=== PATIENT | male | born 1990 | race Caucasian/White ===

== ENCOUNTER 2016-12-31 11:38 | Emergency (ER) | payer OTHER ==
--- NOTE | 2016-12-31 14:19 | EDDOCDS ---
Nurse's Notes [facility] Name: Raj Eagle Age: 26 yrs Sex: Male : 1990 Arrival Date: 12/31/2016 Time: 11:38 Bed TR7 Private MD: NO PRIMARY PHYSICIAN, . Diagnosis: Dental caries Presentation: 12/31 11:44 Presenting complaint: Patient states: Pt presents with c/o dental pain top right side dls onset last night. Adult Sepsis Screening: The patient does not have new or worsening altered mentation. Patient's respiratory rate is less than 22. Systolic blood pressure is greater than 100. Patient has a qSOFA score of 0- Negative Sepsis Screen. Suicide/Homicide risk assessment- the patient denies having any suicidal and/or homicidal ideations and does not present with any other emotional, behavioral or mental health complaints. 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 Transition of care: patient was not received from another setting of care. 11:44 Acuity: NATASHA Level 4 dls 11:44 Method Of Arrival: Walkin/Carried/Asstd dls Triage Assessment: 11:45 General: Appears in no apparent distress, slender, Behavior is cooperative. Pain: Pain dls currently is 7 out of 10 on a pain scale. HIV screening NA for this visit Offered previously. Historical: - Allergies: no known allergies; - Home Meds: 1. none - PMHx: Substance Abuse; - PSHx: none; - Social history: Smoking status: Patient uses tobacco products, heavy tobacco smoker. No barriers to communication noted, The patient speaks fluent Mongolian. - Family history: Not pertinent. - : The pt / caregiver states he / she is not on anticoagulants. Home medication list is obtained from the patient. - Exposure Risk Screening:: None identified. Screenin:08 Screening information is obtained from the patient. Fall risk: No risks identified. kcs Assistance ADL's: requires no assistance with activities of daily living. Abuse/DV Screen: The patient / caregiver reports he/she is: not in a situation that causes fear, pain or injury. Nutritional screening: No deficits noted. Advance Directives: Currently, there is no health care proxy. home support is adequate. Assessment: 14:07 General: Appears comfortable, well developed, well nourished, well groomed, Behavior is kcs cooperative, pleasant, loudly listening to music on his phone. Pain: Complains of pain in mouth. Awake, alert, oriented. Skin warm and dry. Moves all extremities. Respirations unlabored. No apparent distress. The patient / caregiver is instructed regarding the plan of care and ED course. Physical assessment to be completed by RACHEL/SUNIL. Vital Signs: 11:39 BP 120 / 69; Pulse 86; Resp 18; Temp 97.8(O); Pulse Ox 99% on R/A; Weight 68.04 kg (R); ct3 Height 5 ft. 11 in. (180.34 cm) (R); Pain 7/10; 11:39 Body Mass Index 20.92 (68.04 kg, 180.34 cm) ct3 Vitals: 11:39 Log In Time: December 31, 2016 at 11:37. ct3 ED Course: 11:39 Patient visited by Carina Villarreal PCA. ct3 11:39 NO PRIMARY PHYSICIAN, . is Private Physician. ct3 11:39 Patient moved to Waiting ct3 11:40 Patient moved to Pre RCE ct3 11:45 Triage Initiated dls 13:28 Patient moved to Triage 2 ct3 13:56 Herrera Jeronimo PA-C is PHCP. ar2 13:56 Suzie Cosby MD is Attending Physician. ar2 13:56 Patient visited by Herrera Jeronimo PA-C. ar2 14:06 Patient moved to TR7 ct3 14:07 Patient has correct armband on for positive identification. kcs 14:08 [facility] Payment Agreement was scanned into [employer] and attached to record. mm15 14:08 No IV's were initiated during this patient's visit. No procedures done that require kcs assistance. Order Results: There are currently no results for this order. Outcome: 14:03 Discharge ordered by Provider. ar2 14:07 The following High Risk Discharge criteria are identified: None. Discharged to home kcs ambulatory, with parent. Condition: stable. Discharge instructions given to patient, Instructed on discharge instructions, follow up and referral plans. medication usage, Demonstrated understanding of instructions, medications, Pt was receptive of discharge instructions/ teaching. No special radiology studies were completed. 14:08 Discharge Assessment: Patient awake, alert and oriented x 3. No cognitive and/or kcs functional deficits noted. Patient verbalized understanding of disposition instructions. Patient awake and alert. patient administered narcotics - no. Property sent home with patient. 14:18 Patient left the ED. kcs Signatures: Cheri Dickinson RN RN kcs Scott, Debra, RN RN dls Robertshaw, Aaron, LUC PAAaron ar2 Carina Villarreal, COTTON BROKER COTTON BROKER ct3 Ivan Gutierrez mm15 MTDD
--- NOTE | 2016-12-31 14:19 | EDDOCDS ---
Physician Documentation [facility] Name: Raj Eagle Age: 26 yrs Sex: Male : 1990 Arrival Date: 12/31/2016 Time: 11:38 Bed TR7 Private MD: NO PRIMARY PHYSICIAN, . Disposition: 12/31/16 14:03 Discharged to Home/Self Care. Impression: Dental caries. - Condition is Stable. - Discharge Instructions: Dental Pain. - Prescriptions for Amoxicillin 875 mg Oral Tablet - take 1 tablet by ORAL route every 12 hours for 10 days; 20 tablet. Ibuprofen 800 mg Oral Tablet - take 1 tablet by ORAL route every 8 hours As needed take with food; 30 tablet. - Medication Reconciliation, Local Pharmacy Hours form. - Follow up: Private Physician; When: Call to arrange an appointment; Reason: Recheck today's complaints, Continuance of care. Follow up: Emergency Department; When: As needed; Reason: Fever > 102F, Trouble breathing, Worsening of conditions. - Problem is new. - Symptoms are unchanged. Historical: - Allergies: no known allergies; - Home Meds: 1. none - PMHx: Substance Abuse; - PSHx: none; - Social history: Smoking status: Patient uses tobacco products, heavy tobacco smoker. No barriers to communication noted, The patient speaks fluent Danish. - Family history: Not pertinent. - : The pt / caregiver states he / she is not on anticoagulants. Home medication list is obtained from the patient. - Exposure Risk Screening:: None identified. Vital Signs: 12/31 11:39 BP 120 / 69; Pulse 86; Resp 18; Temp 97.8(O); Pulse Ox 99% on R/A; Weight 68.04 kg / ct3 150 lbs (R); Height 5 ft. 11 in. (180.34 cm) (R); Pain 7/10; 11:39 Body Mass Index 20.92 (68.04 kg, 180.34 cm) ct3 MDM: 14:08 [facility] Payment Agreement was scanned into [employer] and attached to record. mm15 14:09 Financial registration complete. mm15 Signatures: Cheri Dickinson RN RN Cindy Jaquez RN RN dls Robertshaw, Aaron, PA-C PAIvan Moeller mm15 The chart was reviewed and I authenticate all verbal orders and agree with the evaluation and treatment provided.Attachments: 14:08 [facility] Payment Agreement mm15 MTDD
--- NOTE | 2017-01-02 15:19 | EDDOCDS ---
Physician Documentation [facility] Name: Raj Eagle Age: 26 yrs Sex: Male : 1990 Arrival Date: 12/31/2016 Time: 11:38 Bed TR7 Private MD: NO PRIMARY PHYSICIAN, . Disposition: 12/31/16 14:03 Discharged to Home/Self Care. Impression: Dental caries. - Condition is Stable. - Discharge Instructions: Dental Pain. - Prescriptions for Amoxicillin 875 mg Oral Tablet - take 1 tablet by ORAL route every 12 hours for 10 days; 20 tablet. Ibuprofen 800 mg Oral Tablet - take 1 tablet by ORAL route every 8 hours As needed take with food; 30 tablet. - Medication Reconciliation, Local Pharmacy Hours form. - Follow up: Private Physician; When: Call to arrange an appointment; Reason: Recheck today's complaints, Continuance of care. Follow up: Emergency Department; When: As needed; Reason: Fever > 102F, Trouble breathing, Worsening of conditions. - Problem is new. - Symptoms are unchanged. Historical: - Allergies: no known allergies; - Home Meds: 1. none - PMHx: Substance Abuse; - PSHx: none; - Social history: Smoking status: Patient uses tobacco products, heavy tobacco smoker. No barriers to communication noted, The patient speaks fluent Italian. - Family history: Not pertinent. - : The pt / caregiver states he / she is not on anticoagulants. Home medication list is obtained from the patient. - Exposure Risk Screening:: None identified. Vital Signs: 12/31 11:39 BP 120 / 69; Pulse 86; Resp 18; Temp 97.8(O); Pulse Ox 99% on R/A; Weight 68.04 kg / ct3 150 lbs (R); Height 5 ft. 11 in. (180.34 cm) (R); Pain 7/10; 11:39 Body Mass Index 20.92 (68.04 kg, 180.34 cm) ct3 MDM: 14:08 [facility] Payment Agreement was scanned into [employer] and attached to record. mm15 14:09 Financial registration complete. mm15 01/01 12:45 T-Sheet-- Draft Copy was scanned into [employer] and attached to record. gb Signatures: Cheri Dickinson RN RN Cindy Jaquez RN RN dls Barnhardt, Gloria, Reg Reg gb Herrera Jeronimo, LUC CALLE ar2 Ivan Gutierrez mm15 The chart was reviewed and I authenticate all verbal orders and agree with the evaluation and treatment provided.Attachments: 12/31 14:08 [facility] Payment Agreement mm15 01/01 12:45 T-Sheet-- Draft Copy gb Chart Complete MTDD
--- NOTE | 2017-01-02 15:19 | EDDOCDS ---
Nurse's Notes [facility] Name: Raj Eagle Age: 26 yrs Sex: Male : 1990 Arrival Date: 12/31/2016 Time: 11:38 Bed TR7 Private MD: NO PRIMARY PHYSICIAN, . Diagnosis: Dental caries Presentation: 12/31 11:44 Presenting complaint: Patient states: Pt presents with c/o dental pain top right side dls onset last night. Adult Sepsis Screening: The patient does not have new or worsening altered mentation. Patient's respiratory rate is less than 22. Systolic blood pressure is greater than 100. Patient has a qSOFA score of 0- Negative Sepsis Screen. Suicide/Homicide risk assessment- the patient denies having any suicidal and/or homicidal ideations and does not present with any other emotional, behavioral or mental health complaints. Status: Patient is not a patient service associate or dependent. Transition of care: patient was not received from another setting of care. 11:44 Acuity: NATASHA Level 4 dls 11:44 Method Of Arrival: Walkin/Carried/Asstd dls Triage Assessment: 11:45 General: Appears in no apparent distress, slender, Behavior is cooperative. Pain: Pain dls currently is 7 out of 10 on a pain scale. HIV screening NA for this visit Offered previously. Historical: - Allergies: no known allergies; - Home Meds: 1. none - PMHx: Substance Abuse; - PSHx: none; - Social history: Smoking status: Patient uses tobacco products, heavy tobacco smoker. No barriers to communication noted, The patient speaks fluent Central African. - Family history: Not pertinent. - : The pt / caregiver states he / she is not on anticoagulants. Home medication list is obtained from the patient. - Exposure Risk Screening:: None identified. Screenin:08 Screening information is obtained from the patient. Fall risk: No risks identified. kcs Assistance ADL's: requires no assistance with activities of daily living. Abuse/DV Screen: The patient / caregiver reports he/she is: not in a situation that causes fear, pain or injury. Nutritional screening: No deficits noted. Advance Directives: Currently, there is no health care proxy. home support is adequate. Assessment: 14:07 General: Appears comfortable, well developed, well nourished, well groomed, Behavior is kcs cooperative, pleasant, loudly listening to music on his phone. Pain: Complains of pain in mouth. Awake, alert, oriented. Skin warm and dry. Moves all extremities. Respirations unlabored. No apparent distress. The patient / caregiver is instructed regarding the plan of care and ED course. Physical assessment to be completed by RACHEL/SUNIL. Vital Signs: 11:39 BP 120 / 69; Pulse 86; Resp 18; Temp 97.8(O); Pulse Ox 99% on R/A; Weight 68.04 kg (R); ct3 Height 5 ft. 11 in. (180.34 cm) (R); Pain 7/10; 11:39 Body Mass Index 20.92 (68.04 kg, 180.34 cm) ct3 Vitals: 11:39 Log In Time: December 31, 2016 at 11:37. ct3 ED Course: 11:39 Patient visited by Carina Villarreal PCA. ct3 11:39 NO PRIMARY PHYSICIAN, . is Private Physician. ct3 11:39 Patient moved to Waiting ct3 11:40 Patient moved to Pre RCE ct3 11:45 Triage Initiated dls 13:28 Patient moved to Triage 2 ct3 13:56 Herrera Jeronimo PA-C is PHCP. ar2 13:56 Suzie Cosby MD is Attending Physician. ar2 13:56 Patient visited by Herrera Jeronimo PA-C. ar2 14:06 Patient moved to TR7 ct3 14:07 Patient has correct armband on for positive identification. kcs 14:08 [facility] Payment Agreement was scanned into [employer] and attached to record. mm15 14:08 No IV's were initiated during this patient's visit. No procedures done that require kcs assistance. 01/01 12:45 T-Sheet-- Draft Copy was scanned into [employer] and attached to record. gb Order Results: There are currently no results for this order. Outcome: 12/31 14:03 Discharge ordered by Provider. ar2 14:07 The following High Risk Discharge criteria are identified: None. Discharged to home kcs ambulatory, with parent. Condition: stable. Discharge instructions given to patient, Instructed on discharge instructions, follow up and referral plans. medication usage, Demonstrated understanding of instructions, medications, Pt was receptive of discharge instructions/ teaching. No special radiology studies were completed. 14:08 Discharge Assessment: Patient awake, alert and oriented x 3. No cognitive and/or kcs functional deficits noted. Patient verbalized understanding of disposition instructions. Patient awake and alert. patient administered narcotics - no. Property sent home with patient. 14:18 Patient left the ED. kcs Signatures: Cheri Dickinson RN RN Cindy Jaquez RN RN dls Jacquelyn Tse, Reg Reg gb Herrera Jeronimo PA-C PA-C ar2 Carina Villarreal, VISHAL GERIATRIC NURSE ct3 Ivan Gutierrez mm15 Chart Complete MTDD
--- NOTE | 2017-01-02 15:19 | EDDOCDS ---
Physician Documentation [facility] Name: Raj Eagle Age: 26 yrs Sex: Male : 1990 Arrival Date: 12/31/2016 Time: 11:38 Bed TR7 Private MD: NO PRIMARY PHYSICIAN, . Disposition: 12/31/16 14:03 Discharged to Home/Self Care. Impression: Dental caries. - Condition is Stable. - Discharge Instructions: Dental Pain. - Prescriptions for Amoxicillin 875 mg Oral Tablet - take 1 tablet by ORAL route every 12 hours for 10 days; 20 tablet. Ibuprofen 800 mg Oral Tablet - take 1 tablet by ORAL route every 8 hours As needed take with food; 30 tablet. - Medication Reconciliation, Local Pharmacy Hours form. - Follow up: Private Physician; When: Call to arrange an appointment; Reason: Recheck today's complaints, Continuance of care. Follow up: Emergency Department; When: As needed; Reason: Fever > 102F, Trouble breathing, Worsening of conditions. - Problem is new. - Symptoms are unchanged. Historical: - Allergies: no known allergies; - Home Meds: 1. none - PMHx: Substance Abuse; - PSHx: none; - Social history: Smoking status: Patient uses tobacco products, heavy tobacco smoker. No barriers to communication noted, The patient speaks fluent Icelandic. - Family history: Not pertinent. - : The pt / caregiver states he / she is not on anticoagulants. Home medication list is obtained from the patient. - Exposure Risk Screening:: None identified. Vital Signs: 12/31 11:39 BP 120 / 69; Pulse 86; Resp 18; Temp 97.8(O); Pulse Ox 99% on R/A; Weight 68.04 kg / ct3 150 lbs (R); Height 5 ft. 11 in. (180.34 cm) (R); Pain 7/10; 11:39 Body Mass Index 20.92 (68.04 kg, 180.34 cm) ct3 MDM: 14:08 [facility] Payment Agreement was scanned into [employer] and attached to record. mm15 14:09 Financial registration complete. mm15 01/01 12:45 T-Sheet-- Draft Copy was scanned into [employer] and attached to record. gb Signatures: Cheri Dickinson RN RN Cindy Jaquez RN RN dls Barnhardt, Gloria, Reg Reg gb Herrera Jeronimo, LUC CALLE ar2 Ivan Gutierrez mm15 The chart was reviewed and I authenticate all verbal orders and agree with the evaluation and treatment provided.Attachments: 12/31 14:08 [facility] Payment Agreement mm15 01/01 12:45 T-Sheet-- Draft Copy gb Chart Complete MTDD
== END 2016-12-31 14:18 | disposition home or self-care (01) ==
LOC: M ED 11:38
DX: K02.9 Dental caries, unspecified (principal); F19.10 Other psychoactive substance abuse, uncomplicated; F17.210 Nicotine dependence, cigarettes, uncomplicated

== ENCOUNTER → 2017-01-16 | Outpatient (REF) | payer OTHER ==
[2017-01-16 14:48] LABS: MEAN CORPUSCULAR HEMOGLOBIN 31.1 pg (27.0-33.0); MEAN CORPUSCULAR HGB CONC 33.2 g/dl (32.0-36.5); MEAN CORPUSCULAR VOLUME 93.5 fl (80.0-96.0); RED CELL DISTRIBUTION WIDTH 11.4 % (11.5-14.5); WHITE BLOOD COUNT 5.3 K/mm3 (4.0-10.0)
[2017-01-16 15:02] LABS: ALBUMIN 4.2 GM/DL (3.2-5.2); ALKALINE PHOSPHATASE 74 U/L (45-117); ALT/SGPT 13 U/L (12-78); ANION GAP 6 MEQ/L (8-16); AST/SGOT 11 U/L (15-37); BILIRUBIN,TOTAL 0.6 MG/DL (0.2-1.0); BLOOD UREA NITROGEN 14 MG/DL (7-18); CALCIUM LEVEL 9.2 MG/DL (8.5-10.1); CARBON DIOXIDE LEVEL 30 MEQ/L (21-32); CHLORIDE LEVEL 104 MEQ/L (98-107); CREATININE FOR GFR 0.81 MG/DL (0.70-1.30); FREE T4 1.26 NG/DL (0.76-1.46); GLOMERULAR FILTRATION RATE > 60.0 (>60); GLUCOSE, FASTING 87 MG/DL (70-105); POTASSIUM SERUM 4.2 MEQ/L (3.5-5.1); SODIUM LEVEL 140 MEQ/L (136-145)
[2017-01-18 13:57] LABS: CONTROL LINE INT CTR LINE PRESENT; HIV SCRN NEGATIVE (NEGATIVE); HIV SCRN1 NEGATIVE (NEGATIVE)
== END ==
LOC: M LABDRAW1 13:34
PROVIDERS: ATTEND Family Medicine
DX: F19.10 Other psychoactive substance abuse, uncomplicated (principal)

== ENCOUNTER → 2017-02-15 | Outpatient (CLI) | payer OTHER ==
[2017-02-15 18:18] LABS: ALBUMIN 4.5 GM/DL (3.2-5.2); ALBUMIN/GLOBULIN RATIO 1.45 (1.00-1.93); ALKALINE PHOSPHATASE 80 U/L (45-117); ALT/SGPT 14 U/L (12-78); ANION GAP 9 MEQ/L (8-16); AST/SGOT 11 U/L (15-37); BILIRUBIN,TOTAL 0.5 MG/DL (0.2-1.0); BLOOD UREA NITROGEN 12 MG/DL (7-18); CALCIUM LEVEL 9.2 MG/DL (8.5-10.1); CARBON DIOXIDE LEVEL 28 MEQ/L (21-32); CHLORIDE LEVEL 104 MEQ/L (98-107); CREATININE FOR GFR 1.01 MG/DL (0.70-1.30); GLOMERULAR FILTRATION RATE > 60.0 (>60); GLUCOSE, FASTING 100 MG/DL (70-105); POTASSIUM SERUM 4.2 MEQ/L (3.5-5.1); SODIUM LEVEL 141 MEQ/L (136-145); TOTAL PROTEIN 7.6 GM/DL (6.4-8.2)
[2017-02-15 19:15] LABS: BASO % 0.3 % (0.0-1.0); EOS # 0.1 K/mm3 (0.0-0.50); EOS % 1.9 % (0.0-3.0); LARGE UNSTAINED CELL # 0.1 K/mm3 (0.0-0.4); LARGE UNSTAINED CELL % 1.4 % (0.0-4.0); LYMPH # 1.5 K/mm3 (1.5-6.5); MEAN CORPUSCULAR HEMOGLOBIN 30.9 pg (27.0-33.0); MEAN CORPUSCULAR HGB CONC 33.5 g/dl (32.0-36.5); MEAN CORPUSCULAR VOLUME 92.3 fl (80.0-96.0); MONO # 0.6 K/mm3 (0.0-0.8); MONO % 8.6 % (0.0-5.0); NEUTROPHILS # 5.1 K/mm3 (1.8-7.7); NEUTROPHILS % 68.9 % (36.0-66.0); PLATELET COUNT, AUTOMATED 224 k/mm3 (150-450); RED CELL DISTRIBUTION WIDTH 11.5 % (11.5-14.5); WHITE BLOOD COUNT 7.4 K/mm3 (4.0-10.0)
--- NOTE | 2017-02-15 22:28 | ECGEPIP ---
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
[2017-02-18 13:02] LABS: HIV SCREEN CENTAUR NEGATIVE (NEGATIVE)
== END ==
LOC: M LAB 16:30
PROVIDERS: ATTEND Family Medicine
DX: F11.20 Opioid dependence, uncomplicated (principal)

== ENCOUNTER 2017-03-13 17:41 | Emergency (ER) | payer OTHER ==
[~2017-03-13] VITALS: Ht 182.9 cm; Wt 71.7 kg
[2017-03-13] MEDS ORDERED: suboxone SL (17:55)
[2017-03-13] MEDS ORDERED: ESCI10TA2 PO (17:55)
[2017-03-13] MEDS ORDERED: QUET1TAB8 PO (17:55)
[2017-03-13] MEDS ORDERED: GI COCKTAIL 50ML BTL(HYOSCYAMINE/MAALOX/LIDOCAINE VISCOUS)(1:3:1) PO ONE (19:00)
[2017-03-13] MEDS ORDERED: NEXI20CA PO (19:13)
[2017-03-13 19:22] VITALS: BP 135/69
== END 2017-03-13 19:23 | disposition home or self-care (01) ==
LOC: M ED 18:41
DX: R11.2 Nausea with vomiting, unspecified (principal); F33.9 Major depressive disorder, recurrent, unspecified; F17.200 Nicotine dependence, unspecified, uncomplicated; Z79.899 Other long term (current) drug therapy; Z87.11 Personal history of peptic ulcer disease